=== PATIENT | female | born 1955 | race Caucasian/White ===

== ENCOUNTER → 2016-07-26 | Outpatient (CLI) | payer OTHER ==
--- NOTE | 2016-07-27 17:19 | RADIOLOGY REPORT PS360 ---
DIG MAMM-SCREEN REX W/CAD CAD Screening COMPARISON: Digital mammograms 05/09/2014 and 05/14/2015 INDICATION: There is no personal or family history of breast cancer. There is been previous biopsy right breast. TECHNIQUE: Standard CC and MLO images were obtained. R2 CAD reviewed. FINDINGS: Moderate heterogenic fibroglandular densities are seen in central portions of both breasts. There are stable tiny nodular densities outer quadrant of the left breast. There are few scattered benign-appearing calcifications in each breast. There are fatty replaced nodes in both axilla. There is no suspicious lesion and there are no suspicious microcalcifications. IMPRESSION: Moderate breast density with no suspicious lesion seen recommend yearly follow-up BI-RADS CATEGORY: 2_Benign RECOMMENDED FOLLOWUP: 12M 12 MONTH FOLLOW-UP (A letter has been sent to the patient regarding results of the study.)
== END ==
LOC: RAD 09:30
DX: Z12.31 Encounter for screening mammogram for malignant neoplasm of breast (principal)
CPT/HCPCS: G0202